=== PATIENT | male | born 2000 | race Caucasian/White ===

== ENCOUNTER 2024-01-12 16:15 | Emergency (ER) | payer BC, SELFPAY ==
[2024-01-12 16:26] VITALS: BP 136/93
[2024-01-12 16:40] VITALS: BMI 22.9
[2024-01-12] MEDS: ZOFRAN 4 MG IV (17:08)
[2024-01-12] MEDS: NSS 1000 IV (17:08)
[2024-01-12 17:09] VITALS: BP 131/50
--- NOTE | 2024-01-12 17:22 | ED.GENMED ---
History of Present Illness
General
Chief Complaint: Headache
Source: patient and family
Exam Limitations: none
Time Seen by Provider: 01/12/24 16:54
History of Present Illness
History of Present Illness:
23-year-old male complaining of recurrent nausea vomiting severe headache. Patient initially felt this was all from significant beer intake last evening. However the headache became suddenly worse after vomiting. Has improved somewhat since then.
Headache is diffuse. No neurologic symptoms. No other complaints.
Past History
Past History
ED Past Medical History: Other (bicuspid aortic valve, heart murmur)
ED Past Surgical History: None
Social History
Tobacco: Non-smoker
Alcohol: None
Drug: None
Personal: Single
Living: with family
Employment: Employed (works at restaurant)
Review of Systems
Review of Systems
All Other Systems: Not applicable
Respiratory: Reports no symptoms
Cardiac: Reports chest pain
Phy Exam
Physical Exam
Physical Exam:
GENERAL: Alert and oriented in no apparent distress, but appears mildly uncomfortable
EYE: Orbits normal. Discharge extraocular muscles intact
NECK: Supple, nontender
ENT: Pharynx without erythema
CARDIAC: Regular rate and rhythm without any obvious murmurs.
LUNGS: Clear breath sounds,normal
ABDOMEN: Soft, mild epigastric tenderness. No rebound or guarding no mass or hernia
NEUROLOGICAL: Alert and oriented , grossly non-focal
SKIN: Warm and dry, no rash or lesion, no discoloration, skin intact.
MUSCULOSKELETAL: No edema,no deformity.Good color
PSYCH: Normal and appropriate interaction.
Course
Orders/Labs/Results
Orders:
Orders
01/12/24 17:00
CT Head & Neck Angio W/wo IV Urgent
Comment:
Reason For Exam: Sudden severe olivarez. Hx of bicuspid AV. include arch
Cardiac Monitoring- Treatment ONCE
Pulse Ox/cont/shift [RESP] Stat
Quantity: 1
01/12/24 17:01
Electrocardiogram (*1) Stat
Reason for Study: Other
Other Reason for Exam: neuro symptoms
EKG- Treatment ONCE
01/12/24 17:02
IV Insert/Care/Rem.- Treatment PRN
0.9% Sodium Chloride 1000 ml [Nss] 1,000 ml IV BOLUS
Ondansetron Injectable [Zofran] 4 mg IV NOW STA
01/12/24 17:05
Complete Blood Count/With Diff Urgent
Comprehensive Metabolic Panel Urgent
Lipase Urgent
01/12/24 18:52
Ketorolac [Toradol] 15 mg IV NOW STA
Abnormal Lab Results
01/12/24
17:05
RBC 6.25 H 10^6/uL
(4.70-6.10)
Hgb 19.5 H g/dL
(13.0-18.0)
MCH 31.2 H pg
(27.0-31.0)
MCHC 30.8 L g/dL
(33.0-37.0)
RDW 11.4 L %
(11.5-14.5)
MPV 11.0 H fL
(7.4-10.4)
Carbon Dioxide 17 L mmol/L
(22-30)
Glucose 106 H mg/dl
(70-99)
Calcium 10.9 H mg/dl
(8.4-10.2)
Total Protein 8.3 H g/dl
(6.3-8.2)
Albumin 5.6 H g/dl
(3.5-5.0)
01/12/24 17:05
01/12/24 17:05
Vital Signs
Initial and Last Documented VS:
Initial Vital Signs
Pulse Resp BP Pulse Ox
78 20 136/93 100
01/12/24 16:26 01/12/24 16:26 01/12/24 16:26 01/12/24 16:26
Last Documented Vital Signs
Pulse Resp BP Pulse Ox
61 16 124/78 100
01/12/24 20:09 01/12/24 20:09 01/12/24 20:09 01/12/24 20:09
MDM/Problems Addressed
Differential Diagnosis Includes:
Likely all hung over related issues to the alcohol however with sudden severe headache after vomiting patient warrants workup for subarachnoid hemorrhage. CT CT angio labs nausea meds.
*Radiology
Radiology exam reviewed: radiology read reviewed (CT angiography negative)
*Pulse Oximetry
Patient hypoxic: no
*EKG
Interpreted by ED Provider?: Yes
Interpretation: abnormal
Comparison EKG: no comparison EKG present
Heart Rate: 61
Rhythm: sinus
Interval: normal interval
QRS Pattern: wide non-specific
Ischemia: no ischemia
*Critical Care Note
Total Time (30-74mins, 75-104mins- exclusive of procedures): Not Applicable
Update Note
Update Note:
Patient looks and feels much better after a liter of fluids Zofran and Toradol. Workup unremarkable. Patient will follow-up elevated hemoglobin. Likely from dehydration. Will cover with antibiotics for sinusitis although likely unrelated to his
current symptoms.
ED Attending Note
-
Portions of this chart may have been created with voice recognition software.� Occasional wrong word or��sound alike� substitutions may have occurred due to the inherent limitations of voice recognition software.
Discharge Plan
Departure
Patient Disposition: Home (Routine Discharge)
Date of Disposition: 01/12/24
Time of Disposition: 19:59
Patient with high blood pressure during this ER visit?: No
Discharge Problem:
Headache/vomiting, Sinusitis
Instructions: Headache, Adult (DC), Sinusitis, Adult ED, BLOOD PRESSURE
Prescriptions:
New
amoxicillin-pot clavulanate 875-125 mg tablet
1 tab PO BID Qty: 20 0RF
No Action
prednisone 10 MG tablet
10 mg PO DAILY Qty: 30 0RF
Referrals:
Justin Sepulveda MD [Family Provider] - Follow up in 2-3 days
Activity Restrictions/Additional Instructions:
Your blood count was high. Likely from dehydration.
For completeness get a repeat blood count done in a few weeks
Interventions
Interventions:
*Risk Screen - Suicide Last Done: 01/12/24 16:43
*General Assessment Last Done: 01/12/24 16:43
*Neglect/Abuse Screening Last Done: 01/12/24 16:43
ED- Fall Risk Assessment Last Done: 01/12/24 20:13
*ED COVID-19 Vaccine History Last Done: 01/12/24 16:43
*Nursing Disposition Last Done: 01/12/24 20:13
ED- Neurological Assessment Last Done: 01/12/24 16:42
Discharge Date and Time
Discharge Date/Time: 01/12/24 20:17
Print Language: ESTONIAN
[2024-01-12 17:28] LABS: AST (SGOT) 33 U/L (17-59); Albumin 5.6 g/dl (3.5-5.0); Alkaline Phosphatase 89 U/L (38-126); Blood Urea Nitrogen 17 mg/dl (9-20); Calcium 10.9 mg/dl (8.4-10.2); Carbon Dioxide 17 mmol/L (22-30); Chloride 105 mmol/L (98-107); Estimated Creatinine Clearance > 125 ml/min; Glucose 106 mg/dl (70-99); Lipase 92 U/L (23-300); Potassium 4.2 mmol/L (3.5-5.1); Sodium 140 mmol/L (135-145); Total Bilirubin 1.2 mg/dl (0.2-1.3); Total Protein 8.3 g/dl (6.3-8.2); eGFR > 60.00
[2024-01-12 18:02] LABS: ALT (SGPT) 27 U/L (0-50)
[2024-01-12 18:10] VITALS: BP 128/60
[2024-01-12] MEDS: TORADOL 15 MG IV (18:54)
[2024-01-12 19:00] VITALS: BP 120/67
[2024-01-12 19:19] LABS: % Basophils 0.7 % (0-2); % Immature Granulocytes 0.3 % (0-0.5); % Lymphocytes 28.1 % (20.5-51.1); % Monocytes 5.5 % (1.7-9.3); % Neutrophils 64.4 % (42.2-75.2); Absolute Eosinophils 0.1 10^3/uL (0-0.7); Absolute Lymphocytes 1.7 10^3/uL (1.2-3.4); Absolute Monocytes 0.3 10^3/uL (0.1-0.6); Hematocrit 51.3 % (39.0-52.0); Hemoglobin 19.5 g/dL (13.0-18.0); Mean Corpuscular Hgb 31.2 pg (27.0-31.0); Mean Corpuscular Volume 82.1 fL (80.0-94.0); Nucleated Red Blood Cells % 0 % (-); Platelet Count 189 10^3/uL (130-400); Red Blood Cell Count 6.25 10^6/uL (4.70-6.10); Red Cell Dist. Width 11.4 % (11.5-14.5); White Blood Cell Count 6.2 10^3/uL (4.8-10.8)
[2024-01-12 19:23] LABS: Microcytosis 3+
[2024-01-12 19:25] LABS: Anisocytosis Slight; Burr Cells Slight; Poikilocytosis Slight
[2024-01-12 19:29] LABS: Normal RBC Morphology No
[2024-01-12 19:31] LABS: Mean Corp Hgb Conc. 30.8 g/dL (33.0-37.0)
[2024-01-12 20:09] VITALS: BP 124/78
== END 2024-01-12 20:17 | disposition home or self-care (01) ==
LOC: EMR 16:15
PROVIDERS: EMERGENCY PHYSICIAN Emergency Medicine; FAMILY PHYSICIAN Internal Medicine
DX: R51.9 Headache, unspecified (principal); R11.2 Nausea with vomiting, unspecified
CPT/HCPCS: 99284; 96374; 96375; 96361; 70496; 70498; 80053; 83690; 85025; 93005; Q9967

== ENCOUNTER → 2025-01-09 13:04 | Outpatient (REF) | payer BC, SELFPAY | LOC: RCS 13:04 | PROVIDERS: ATTENDING PHYSICIAN Nurse Practitioner; FAMILY PHYSICIAN Internal Medicine | DX: I35.0 Nonrheumatic aortic (valve) stenosis (principal); Q23.1 Congenital insufficiency of aortic valve | CPT/HCPCS: 93306 ==

== ENCOUNTER → 2025-02-20 08:20 | Outpatient (REF) | payer BC, SELFPAY | LOC: RCS 08:20 | PROVIDERS: ATTENDING PHYSICIAN Internal Medicine Cardiovascular Disease; FAMILY PHYSICIAN Internal Medicine | DX: I51.7 Cardiomegaly (principal) | CPT/HCPCS: 93306 ==

== ENCOUNTER → 2025-04-08 08:32 | Outpatient (REF) | payer BC, SELFPAY | LOC: PAVMRI 08:32 | PROVIDERS: ATTENDING PHYSICIAN Internal Medicine Cardiovascular Disease; FAMILY PHYSICIAN Internal Medicine | DX: I51.7 Cardiomegaly (principal) | CPT/HCPCS: 75561; 75565; A9585 ==